=== PATIENT | female | born 1985 | race Caucasian/White ===

== ENCOUNTER 2018-05-11 15:41 | Emergency (ER) | payer SELFPAY ==
[~2018-05-11] VITALS: Ht 165.1 cm; Wt 113.9 kg
[2018-05-11 15:50] VITALS: BP 143/79
--- NOTE | 2018-05-11 16:30 | NUR ---
PT BIB SELF WITH AT BEDSIDE. CO COUGH WITH GREEN PHLEGM SINCE WEDNESDAY. CO CHEST PAIN 3 WHILE COUGHING. LUNGS CTA. NO RESPIRATORY DISTRESS. VSS.
--- NOTE | 2018-05-11 16:40 | NUR ---
Patient being evaluated by DR. BRIDGES at bedside.
--- NOTE | 2018-05-11 16:58 | NUR ---
FLU A/B SWAB COLLECTED. SPECIMEN PICKED UP BY LAB.
--- NOTE | 2018-05-11 18:06 | NUR ---
Patient being re-evaluated by Dr. Jackson at bedside.
--- NOTE | 2018-05-11 18:12 | NUR ---
Note [email or web address] in EDM - 05/11/18 at 1817 by [facility] Patient discharged with v/s stable. Written and verbal after care instructions given and explained. Patient alert, oriented and verbalized understanding of instructions. Ambulatory with steady gait. All questions addressed prior to discharge. ID band removed. Patient advised to follow up with PMD. Rx of IBUPROFEN AND TESALON PERLES given. Patient educated on indication of medication including possible reaction and side effects. Opportunity to ask questions provided and answered.
[2018-05-11 18:14] VITALS: BP 112/64
== END 2018-05-11 18:12 | disposition home or self-care (01) ==
LOC: MED 15:41
DX: B34.9 Viral infection, unspecified (principal)
CPT/HCPCS: 36415; 87804; 99283

== ENCOUNTER 2019-01-05 19:46 | Emergency (ER) | payer MEDICAID ==
[~2019-01-05] VITALS: Ht 162.6 cm; Wt 117.9 kg
[2019-01-05 20:01] VITALS: BP 111/75
--- NOTE | 2019-01-05 20:11 | NUR ---
PT AMBULATED TO LOBBY WITH VSS. URINE SAMPLE PROVIDED.
--- NOTE | 2019-01-05 20:57 | NUR ---
ambulated to bed #9
--- NOTE | 2019-01-05 21:00 | NUR ---
33/F PRESENTED TO ED WITH C/O ABDOMINAL PAIN X 3 DAYS. PAIN LOCATED NEAR UMBILICUS. STATED 05/29 INTERMITENT. BROWNISH DISCHARGE FROM UMBILICUS NOTED TODAY. PT STATES SHE HAS BEEN SEEN FOR THIS BEFORE BUT NOT RESOLVING. FOUL ODOR NOTED. NORMOACTIVE BOWEL SOUNDS HEARD IN ALL QUADRANTS. EVEN UNLABORED BREATHING. NO SIGNS OF DISTRESS NOTED. VSS. DAUGHTER AT BEDSIDE. NKA NO RX NO PMH
[2019-01-05 21:28] LABS: BASOPHILS # (AUTO) 0.1 K/uL (0.00-0.22); EOSINOPHILS # (AUTO) 0.3 K/uL (0-0.4); EOSINOPHILS % (AUTO) 2.6 % (0.0-4.0); HEMATOCRIT 39.2 % (36-48); HEMOGLOBIN 12.8 g/dL (12.0-16.0); LYMPHOCYTES # (AUTO) 2.2 K/uL (2.5-16.5); LYMPHOCYTES % (AUTO) 21.4 % (20.5-51.1); MEAN CORPUSCULAR HEMOGLOBIN 27 pg (27-31); MEAN CORPUSCULAR HGB CONC 33 g/dL (33-37); MEAN CORPUSCULAR VOLUME 81.7 fL (80-94); MONOCYTES # (AUTO) 0.4 K/uL (0.8-1.0); MONOCYTES % (AUTO) 4.3 % (1.7-9.3); NEUTROPHILS # (AUTO) 7.1 K/uL (1.8-7.7); NEUTROPHILS % (AUTO) 70.7 % (42.2-75.2); PLATELET COUNT (AUTO) 354 K/uL (140-450); RED CELL DISTRIBUTION WIDTH 15.8 % (11.6-13.7)
[2019-01-05 21:40] LABS: CARBON DIOXIDE 30.3 mmol/L (21-32); CREATININE 0.7 mg/dL (0.6-1.3); POTASSIUM 4.3 mmol/L (3.5-5.1)
--- NOTE | 2019-01-05 21:43 | NUR ---
DR. GLOVER BEDSIDE EVALUATING PT
[2019-01-05 21:46] LABS: ALBUMIN 3.4 g/dL (3.4-5.0); TOTAL BILIRUBIN 0.2 mg/dL (0.0-1.0)
--- NOTE | 2019-01-05 22:02 | NUR ---
PT AMBULATED TO RESTROOM. NO SIGNS OF DISTRESS NOTED. WILL CONTINUE TO MONITOR.
--- NOTE | 2019-01-05 23:16 | NUR ---
PT GOING TO CT
--- NOTE | 2019-01-06 01:17 | NUR ---
PT LAYING IN BED ON PHONE, NO NEW NEEDS AT THIS TIME.
[2019-01-06] MEDS ORDERED: NEOMYCIN/POLYMYXIN/BACITRACIN 0.9 GM/1 PKT TP ONE (02:15)
[2019-01-06] MEDS ORDERED: CEPHALEXIN 500 MG CAP PO ONE (02:15)
[2019-01-06 02:40] VITALS: BP 104/57
--- NOTE | 2019-01-06 02:40 | NUR ---
PT DISCHARGED WITH PAPERWORK. RX MUPIROCIN, KEFLEX. EDUCATED PT REGARDING MEDICATIONS AND S/E. EDUCATED PT REGARDING D/C DIANOSIS AND INSTRUCTIONS. PT VERBALIZED UNDERSTANDING OF TEACHING. TOLD PT TO FOLLOW UP WITH PCP AND WHEN TO RETURN TO ED. PT VSS. ALL QUESTIONS ANSWERED.
[2019-01-06] MEDS ORDERED: CEPHALEXIN 500 MG CAP ONE (02:43)
== END 2019-01-06 02:40 | disposition home or self-care (01) ==
LOC: MED 19:46
DX: R10.33 Periumbilical pain (principal); E66.01 Morbid (severe) obesity due to excess calories; Z68.41 Body mass index [BMI] 40.0-44.9, adult
CPT/HCPCS: 36415; 74177; 80053; 81002; 81025; 83690; 85025; 99284; Q9967

== ENCOUNTER 2019-09-09 21:46 | Emergency (ER) | payer SELFPAY ==
[~2019-09-09] VITALS: Ht 165.1 cm; Wt 115.7 kg
[2019-09-09 22:00] VITALS: BP 112/72
--- NOTE | 2019-09-09 22:05 | NUR ---
PT AMBULATED TO ER BED 4
--- NOTE | 2019-09-09 22:07 | NUR ---
ERMD BEDSIDE EVALUATING PT
--- NOTE | 2019-09-09 22:14 | NUR ---
34 Y/O FEMALE PRESENTS TO ED, C/O LEFT FOOT PAIN. PATIENT STATES PAIN STARTED 4 DAYS, DENIES ANY TRAUMA/INJURY. PAIN 4/10, DOES NOT RADIATE; PAIN WORSENING WITH TOE FLEXION, BILAT STRONG EQUAL PEDAL PULSES. ABLE TO AMBULATE WITH STEADY GAIT BUT WITH PAIN. TOOK TYLENOL 3 HRS AGO, MILD RELIEF. PATIENT STABLE. ERMD AWARE. WILL CONTINUE TO MONITOR.
[2019-09-09] MEDS ORDERED: IBUPROFEN 600 MG TAB PO ONE (22:15)
--- NOTE | 2019-09-09 22:21 | NUR ---
XRAY AT BEDSIDE
[2019-09-09 23:18] VITALS: BP 112/72
== END 2019-09-09 23:18 | disposition home or self-care (01) ==
LOC: MED 21:46
DX: L84 Corns and callosities (principal)
CPT/HCPCS: 73630; 99283; Q0092

== ENCOUNTER 2020-07-07 12:14 | Emergency (ER) | payer SELFPAY ==
[~2020-07-07] VITALS: Ht 157.5 cm; Wt 112.9 kg
[2020-07-07 12:24] VITALS: BP 140/91
[2020-07-07 13:51] LABS: BASOPHILS # (AUTO) 0.1 K/uL (0.00-0.22); BASOPHILS % (AUTO) 0.7 % (0.0-2.0); EOSINOPHILS # (AUTO) 0.3 K/uL (0-0.4); EOSINOPHILS % (AUTO) 2.4 % (0.0-4.0); HEMATOCRIT 41.2 % (36-48); HEMOGLOBIN 13.6 g/dL (12.0-16.0); LYMPHOCYTES # (AUTO) 1.7 K/uL (2.5-16.5); LYMPHOCYTES % (AUTO) 16.1 % (20.5-51.1); MEAN CORPUSCULAR HEMOGLOBIN 27 pg (27-31); MEAN CORPUSCULAR HGB CONC 33 g/dL (33-37); MEAN CORPUSCULAR VOLUME 81.8 fL (80-94); MONOCYTES # (AUTO) 0.6 K/uL (0.8-1.0); MONOCYTES % (AUTO) 5.7 % (1.7-9.3); NEUTROPHILS # (AUTO) 8.1 K/uL (1.8-7.7); NEUTROPHILS % (AUTO) 75.1 % (42.2-75.2); PLATELET COUNT (AUTO) 356 K/uL (140-450); RED BLOOD CELL COUNT(AUTO) 5.05 MIL/uL (4.20-5.40); RED CELL DISTRIBUTION WIDTH 15.3 % (11.6-13.7); WHITE BLOOD COUNT (AUTO) 10.8 K/uL (4.8-10.8)
[2020-07-07 14:09] LABS: ALBUMIN 3.6 g/dL (3.4-5.0); ANION GAP 10.7 (8-16); CARBON DIOXIDE 29.5 mmol/L (21-32); CREATININE 0.6 mg/dL (0.6-1.3); POTASSIUM 4.2 mmol/L (3.5-5.1); TOTAL BILIRUBIN 0.2 mg/dL (0.0-1.0)
[2020-07-07] MEDS ORDERED: MECL-303 PO (15:29)
[2020-07-07 15:31] VITALS: BP 117/72
== END 2020-07-07 15:31 | disposition home or self-care (01) ==
LOC: MED 12:14
DX: F41.9 Anxiety disorder, unspecified (principal); R42 Dizziness and giddiness
CPT/HCPCS: 36415; 71045; 80053; 81002; 81025; 83880; 85025; 85379; 99285

== ENCOUNTER 2022-07-26 12:06 | Emergency (ER) | payer BC ==
[~2022-07-26] VITALS: Ht 162.6 cm; Wt 116.1 kg
[~2022-07-26 12:06] MED LIST: MECL-303 PO
[2022-07-26 12:08] VITALS: BP 128/80
[2022-07-26 12:42] LABS: APPEARANCE,URINE CLEAR (CLEAR); BILIRUBIN,URINE NEGATIVE (NEGATIVE); BLOOD, URINE TRACE-I (NEGATIVE); COLOR,URINE YELLOW (YELLOW); LEUKOCYTE ESTERASE ,URINE 1+ (NEGATIVE); NITRITE, URINE NEGATIVE (NEGATIVE); PH,URINE 6.5 (5.0-9.0); UGLUCOSE NEGATIVE (NEGATIVE)
[2022-07-26 12:43] LABS: BASOPHILS # (AUTO) 0.1 K/uL (0.00-0.22); BASOPHILS % (AUTO) 0.7 % (0.0-2.0); EOSINOPHILS # (AUTO) 0.3 K/uL (0-0.4); EOSINOPHILS % (AUTO) 2.3 % (0.0-4.0); HEMATOCRIT 41.4 % (36-48); HEMOGLOBIN 13.7 g/dL (12.0-16.0); LYMPHOCYTES # (AUTO) 2.3 K/uL (2.5-16.5); LYMPHOCYTES % (AUTO) 18.9 % (20.5-51.1); MEAN CORPUSCULAR HEMOGLOBIN 26 pg (27-31); MEAN CORPUSCULAR HGB CONC 33 g/dL (33-37); MEAN CORPUSCULAR VOLUME 79.3 fL (80-94); MONOCYTES # (AUTO) 0.6 K/uL (0.8-1.0); MONOCYTES % (AUTO) 5.3 % (1.7-9.3); NEUTROPHILS # (AUTO) 8.9 K/uL (1.8-7.7); NEUTROPHILS % (AUTO) 72.8 % (42.2-75.2); PLATELET COUNT (AUTO) 393 K/uL (140-450); RED BLOOD CELL COUNT(AUTO) 5.22 MIL/uL (4.20-5.40); RED CELL DISTRIBUTION WIDTH 15.5 % (11.6-13.7); WHITE BLOOD COUNT (AUTO) 12.3 K/uL (4.8-10.8)
[2022-07-26 12:50] LABS: RBC,URINE 0-5 /HPF (0-5)
[2022-07-26 13:00] LABS: ALBUMIN 3.7 g/dL (3.4-5.0); ANION GAP 13.2 (8-16); CARBON DIOXIDE 28.1 mmol/L (21-32); CREATININE 0.7 mg/dL (0.6-1.3); POTASSIUM 4.3 mmol/L (3.5-5.1); TOTAL BILIRUBIN 0.3 mg/dL (0.0-1.0)
[2022-07-26] MEDS ORDERED: KETOROLAC 15 MG/ML VIAL IM ONE (13:50)
[2022-07-26] MEDS ORDERED: IBUP-2213 PO (14:13)
[2022-07-26] MEDS ORDERED: ONDA-188 SL (14:13)
--- NOTE | 2022-07-26 14:30 | NUR ---
The patient's care was reviewed and supervised by CHRIS RUCKER RN.
[2022-07-26 14:50] VITALS: BP 130/80
--- NOTE | 2022-07-26 14:50 | NUR ---
Patient discharged with v/s stable. Written and verbal after care instructions FOR CHOLELITHIASIS AND BILARY COLIC given and explained. Patient alert, oriented and verbalized understanding of instructions. Ambulatory with steady gait. All questions addressed prior to discharge. ID band removed. Patient advised to follow up with PMD. Rx of IBUPROFEN AND ZOFRAN ODT given. Opportunity to ask questions provided and answered.
== END 2022-07-26 14:50 | disposition home or self-care (01) ==
LOC: MED 12:06
DX: K80.50 Calculus of bile duct without cholangitis or cholecystitis without obstruction (principal)
CPT/HCPCS: 36415; 76705; 80053; 81001; 81025; 83690; 85025; 87086; 96372; 99285; J1885

== ENCOUNTER 2022-09-26 12:22 | Emergency (ER) | payer BC ==
[~2022-09-26] VITALS: Ht 139.7 cm; Wt 115.7 kg
[~2022-09-26 12:22] MED LIST changes: +IBUP-2213 PO; +ONDA-188 SL
[2022-09-26 12:26] VITALS: BP 130/70; PULSE 106; RESP 20; TEMP 98.6; O2SAT 100
--- NOTE | 2022-09-26 12:38 | NUR ---
PT AMBULATED TO BED 3
[2022-09-26] MEDS ORDERED: FLONAS NS (13:14)
[2022-09-26] MEDS ORDERED: SUD30 PO (13:14)
[2022-09-26] MEDS ORDERED: PROM118S5 PO (13:14)
[2022-09-26 13:25] VITALS: BP 130/70; PULSE 106; RESP 20; TEMP 98.6; O2SAT 100
--- NOTE | 2022-09-26 13:26 | NUR ---
Patient discharged with v/s stable. Written and verbal after care instructions given and explained. Patient alert, oriented and verbalized understanding of instructions. Ambulatory with steady gait. All questions addressed prior to discharge. ID band removed. Patient advised to follow up with PMD. Rx of FLONASE, PROMETHAZINE,SUDAFED (SENT) given. Patient educated on indication of medication including possible reaction and side effects. Opportunity to ask questions provided and answered.
--- NOTE | 2022-09-26 13:27 | NUR ---
The patient's care was reviewed and supervised by Dianelys Deras, RN, RN.
== END 2022-09-26 13:26 | disposition home or self-care (01) ==
LOC: MED 12:22
DX: J06.9 Acute upper respiratory infection, unspecified (principal); R03.0 Elevated blood-pressure reading, without diagnosis of hypertension; Z79.899 Other long term (current) drug therapy
CPT/HCPCS: 99283